=== PATIENT | female | born 1990 | race Caucasian/White ===

== ENCOUNTER 2021-01-09 22:30 | Emergency (ER) | payer SELFPAY ==
[~2021-01-09] VITALS: Ht 167.6 cm; Wt 105.2 kg
[2021-01-09 22:43] VITALS: BP 141/97
== END 2021-01-10 01:54 | disposition home or self-care (01) ==
LOC: ER 22:32
DX: N93.0 Postcoital and contact bleeding (principal); N83.201 Unspecified ovarian cyst, right side; Z97.5 Presence of (intrauterine) contraceptive device; Z60.2 Problems related to living alone; Z88.2 Allergy status to sulfonamides
CPT/HCPCS: 76856; 93976; 99284

== ENCOUNTER 2021-03-02 12:08 | Emergency (ER) | payer OTHER ==
[~2021-03-02] VITALS: Ht 167.6 cm; Wt 90.9 kg
[2021-03-02 12:13] VITALS: BP 155/98
[2021-03-02 13:38] LABS: BASOPHILS # (AUTO) 0.1 X10'3 (0-0.2); BASOPHILS % (AUTO) 0.3 % (0-1); EOSINOPHILS % (AUTO) 0.1 % (0-6); HEMATOCRIT 41.6 % (35.0-45.0); HEMOGLOBIN 13.6 g/dl (12.0-16.0); LYMPHOCYTES # (AUTO) 0.9 X10'3 (1.1-4.8); LYMPHOCYTES % (AUTO) 5.4 % (21-51); MEAN CORPUSCULAR HEMOGLOBIN 27.9 PG (27.0-31.0); MEAN CORPUSCULAR HGB CONC 32.6 g/dL (33.0-36.5); MEAN CORPUSCULAR VOLUME 85.4 FL (78-98); MONOCYTES # (AUTO) 0.4 X10'3 (0-0.9); MONOCYTES % (AUTO) 2.3 % (2-12); NEUTROPHILS # (AUTO) 15.9 X10'3 (1.8-7.7); NEUTROPHILS % (AUTO) 91.9 % (42-75); PLATELET COUNT 449 X10'3 (140-440); RED BLOOD COUNT 4.87 X10'6 (4.20-5.60); RED CELL DISTRIBUTION WIDTH 14.8 % (11.5-14.5); WHITE BLOOD COUNT 17.3 X10'3 (4.5-11.0)
[2021-03-02 13:51] LABS: ALANINE AMINOTRANSFERASE 48 U/L (12-78); ALBUMIN 4.6 G/DL (3.4-5.0); ALKALINE PHOSPHATASE 72 IU/L (46-116); ANION GAP 14 (8-16); ASPARTATE AMINO TRANSFERASE 32 U/L (10-37); BILIRUBIN,TOTAL 0.5 MG/DL (0.1-1.0); BLOOD UREA NITROGEN 13 MG/DL (7-18); BUN/CREATININE RATIO 16.9 (6.6-38.0); CHLORIDE 106 MMOL/L (99-107); CREATININE 0.77 MG/DL (0.40-0.90); GLUCOSE 112 MG/DL (70-104); LIPASE 109 U/L (73-393); MAGNESIUM 2.2 MG/DL (1.5-2.4); POTASSIUM 3.9 MMOL/L (3.5-5.1); SODIUM 143 MMOL/L (135-145); TOTAL CARBON DIOXIDE 23.4 MMOL/L (24-32); eGFR 89 ML/MIN
== END 2021-03-02 19:49 | disposition left against medical advice (07) ==
LOC: ER 12:09
DX: R11.10 Vomiting, unspecified (principal); Z53.21 Procedure and treatment not carried out due to patient leaving prior to being seen by health care provider
CPT/HCPCS: 80053; 83690; 83735; 85025; 94760; 99283

== ENCOUNTER 2023-12-23 00:56 | Emergency (ER) | payer OTHER ==
[~2023-12-23] VITALS: Ht 167.6 cm; Wt 100.0 kg
[2023-12-23] MEDS ORDERED: ketorolac trometh. 30mg/ml inj. IV ONE (02:15)
[2023-12-23] MEDS: ondansetron/PF 4mg/2ml inj IV ONE (02:31)
[2023-12-23] MEDS: ketorolac tromethamine 15mg/ml inj. IV ONE (02:33)
[2023-12-23] MEDS: acetaminophen 1,000mg/100ml IV 100 ML IV ONE (02:34)
[2023-12-23] MEDS: normal saline 1000ml 1,000 ML IV ONE (02:39)
[2023-12-23] MEDS ORDERED: ONDA8TAB13 PO (03:35)
[2023-12-23] MEDS ORDERED: IBUP-1984 PO (03:35)
[2023-12-23 03:56] VITALS: BP 117/70; PULSE 71; RESP 16; TEMP 97.3; O2SAT 100
[2023-12-24] MEDS ORDERED: METO10TA3 PO (18:23)
[2023-12-24] MEDS ORDERED: HYDR-3965 PO (18:23)
== END 2023-12-23 03:59 | disposition home or self-care (01) ==
LOC: ER 00:57
DX: R51.9 Headache, unspecified (principal); R11.2 Nausea with vomiting, unspecified; Z60.2 Problems related to living alone; Z79.1 Long term (current) use of non-steroidal anti-inflammatories (NSAID); Z88.2 Allergy status to sulfonamides; Z79.899 Other long term (current) drug therapy
CPT/HCPCS: 96374; 96375; 99284; J0131; J1885; J2405; J7030; 96361

== ENCOUNTER 2023-12-24 14:20 | Inpatient (IN) | payer OTHER ==
[~2023-12-24] VITALS: Ht 165.1 cm; Wt 83.7 kg
[~2023-12-24 14:20] MED LIST: IBUP-1984 PO; ONDA8TAB13 PO
[2023-12-24 15:13] LABS: URINE HCG NEGATIVE (NEG)
[2023-12-24 15:17] LABS: BASOPHILS # (AUTO) 0.1 X10'3 (0-0.2); BASOPHILS % (AUTO) 0.6 % (0-1); EOSINOPHILS # (AUTO) 0.1 X10'3 (0-0.9); EOSINOPHILS % (AUTO) 0.5 % (0-6); HEMATOCRIT 42.5 % (35.0-45.0); LYMPHOCYTES # (AUTO) 2.1 X10'3 (1.1-4.8); MEAN CORPUSCULAR HEMOGLOBIN 28.2 PG (27.0-31.0); MEAN CORPUSCULAR HGB CONC 32.9 g/dL (33.0-36.5); MEAN CORPUSCULAR VOLUME 85.7 FL (78-98); MEAN PLATELET VOLUME 7.5 FL (7.4-10.4); MONOCYTES # (AUTO) 0.5 X10'3 (0-0.9); MONOCYTES % (AUTO) 4.7 % (2-12); NEUTROPHILS # (AUTO) 8.7 X10'3 (1.8-7.7); NEUTROPHILS % (AUTO) 76.2 % (42-75); PLATELET COUNT 447 X10'3 (140-440); RED BLOOD COUNT 4.97 X10'6 (4.20-5.60); WHITE BLOOD COUNT 11.4 X10'3 (4.5-11.0)
[2023-12-24 15:24] LABS: BILIRUBIN,URINE NEGATIVE (Neg); CLARITY,URINE SLIGHTLY CLOUDY (Clear); COLOR,URINE YELLOW (Yellow); GLUCOSE, URINE NEGATIVE (Neg); KETONES,URINE 40 mg/dl (Neg); LEUKOCYTE ESTERASE ,URINE NEGATIVE (Neg); NITRITES, URINE NEGATIVE (Neg); OCCULT BLOOD,URINE LARGE (Neg); PROTEIN,URINE NEGATIVE (Neg)
[2023-12-24 15:30] LABS: ALANINE AMINOTRANSFERASE 76 U/L (12-78); ALBUMIN 4.2 G/DL (3.4-5.0); ALBUMIN/GLOBULIN RATIO 0.9 (1.1-1.5); ALKALINE PHOSPHATASE 58 IU/L (46-116); ANION GAP 9 (8-16); ASPARTATE AMINO TRANSFERASE 34 U/L (10-37); BILIRUBIN,TOTAL 0.6 MG/DL (0.1-1.0); BLOOD UREA NITROGEN 8 MG/DL (7-18); BUN/CREATININE RATIO 9.4 (10.0-20.0); CALCIUM 9.1 MG/DL (8.5-10.1); CHLORIDE 102 MMOL/L (99-107); CREATININE 0.85 MG/DL (0.40-0.90); GLUCOSE 93 MG/DL (70-104); LIPASE 44 U/L (16-77); POTASSIUM 3.5 MMOL/L (3.5-5.1); SODIUM 137 MMOL/L (135-145); TOTAL CARBON DIOXIDE 25.6 MMOL/L (24-32); TOTAL PROTEIN 8.9 G/DL (6.4-8.2); eCRCL 86 ML/MIN; eGFR 78 ML/MIN
[2023-12-24 15:33] LABS: SQUAMOUS EPITHELIAL CELL,UR MODERATE /LPF (FEW); UA COLLECTION TYPE CLN CATCH MIDSTREAM
[2023-12-24 15:34] LABS: BACTERIA,URINE FEW /HPF (Neg); MUCUS STRANDS FEW /LPF (Neg); RBC,URINE 20-50 /HPF (0-2); WBC,URINE 0-4 /HPF (0-4)
[2023-12-24] MEDS: ketorolac tromethamine 15mg/ml inj. IV ONE (16:19)
[2023-12-24] MEDS: metoclopramide 5 mg/ml inj IV ONE ×2 (16:21→19:46)
[2023-12-24] MEDS: diphenhydrAMINE 50 mg/ml inj IV ONE ×2 (16:23→19:46)
[2023-12-24] MEDS: normal saline 1000ml 1,000 ML IV ONE (16:25)
[2023-12-24] MEDS ORDERED: METO10TA3 PO (18:23)
[2023-12-24] MEDS ORDERED: HYDR-3965 PO (18:23)
[2023-12-24] MEDS ORDERED: ondansetron/PF 4mg/2ml inj IM ONE (19:10)
[2023-12-24] MEDS: ondansetron/PF 4mg/2ml inj IV ONE (19:20)
[2023-12-24] MEDS: LORazepam 2 mg/ml vial IV ONE (19:36)
[2023-12-24] MEDS: morphine 4 MG/ML inj SYRINge IV ONE (19:42)
[2023-12-24] MEDS: normal saline 1000ML IV soln IVB ONE (19:47)
[2023-12-24] MEDS: piperacillin/tazo 3.375gm/50ml 50 ML IV STA (19:55)
[2023-12-24] MEDS ORDERED: potassium Cl 40MEQ/1/2NS 520ml 520 ML IV PRN (20:05)
[2023-12-24] MEDS: CefTRIAXone/D5W-Rocephin 1gm 50 ML IV ONE (20:27)
[2023-12-24] MEDS: normal saline 1000ml 1,000 ML IV SCH (20:27)
[2023-12-24] MEDS: haloperidol lactate 5mg/ml inj IM ONE (21:32)
[2023-12-24] MEDS: ondansetron/PF 4mg/2ml inj IV PRN (23:03)
[2023-12-24] MEDS: morphine 2 MG/ML inj. syringe IV PRN (23:04)
[2023-12-25] VITALS (17 sets, daily range): BP systolic 127–178; BP diastolic 73–99; PULSE 65–106; RESP 15–18; TEMP 97.9–98.4; O2SAT 94–100
[2023-12-25] MEDS: proCHLORperazine 10 MG/2 ml inj IV PRN (00:16)
[2023-12-25 07:55] LABS: BASOPHILS % (AUTO) 0.2 % (0-1); EOSINOPHILS % (AUTO) 0 % (0-6); HEMATOCRIT 39.1 % (35.0-45.0); HEMOGLOBIN 12.9 g/dl (12.0-16.0); LYMPHOCYTES % (AUTO) 6.7 % (21-51); MEAN CORPUSCULAR HEMOGLOBIN 28.1 PG (27.0-31.0); MEAN CORPUSCULAR HGB CONC 32.9 g/dL (33.0-36.5); MEAN CORPUSCULAR VOLUME 85.6 FL (78-98); MEAN PLATELET VOLUME 8.2 FL (7.4-10.4); MONOCYTES # (AUTO) 0.3 X10'3 (0-0.9); MONOCYTES % (AUTO) 1.7 % (2-12); NEUTROPHILS # (AUTO) 13.9 X10'3 (1.8-7.7); NEUTROPHILS % (AUTO) 91.4 % (42-75); PLATELET COUNT 462 X10'3 (140-440); RED BLOOD COUNT 4.57 X10'6 (4.20-5.60); WHITE BLOOD COUNT 15.3 X10'3 (4.5-11.0)
[2023-12-25] MEDS: venlafaxine XR 75mg capsule (Q24H) PO SCH (08:00)
[2023-12-25 08:11] LABS: ALANINE AMINOTRANSFERASE 62 U/L (12-78); ALBUMIN/GLOBULIN RATIO 0.9 (1.1-1.5); ALKALINE PHOSPHATASE 53 IU/L (46-116); ANION GAP 14 (8-16); ASPARTATE AMINO TRANSFERASE 25 U/L (10-37); BILIRUBIN,TOTAL 0.6 MG/DL (0.1-1.0); BLOOD UREA NITROGEN 9 MG/DL (7-18); BUN/CREATININE RATIO 13.8 (10.0-20.0); CALCIUM 8.4 MG/DL (8.5-10.1); CHLORIDE 104 MMOL/L (99-107); CREATININE 0.65 MG/DL (0.40-0.90); GLUCOSE 118 MG/DL (70-104); POTASSIUM 3.5 MMOL/L (3.5-5.1); SODIUM 138 MMOL/L (135-145); TOTAL CARBON DIOXIDE 20.1 MMOL/L (24-32); TOTAL PROTEIN 8.4 G/DL (6.4-8.2); eCRCL 113 ML/MIN; eGFR > 90 ML/MIN
[2023-12-25] MEDS: ondansetron/PF 4mg/2ml inj IM ONE (08:29)
[2023-12-25] MEDS: CefTRIAXone/D5W-Rocephin 1gm 50 ML IV SCH (08:29)
[2023-12-25] MEDS: metoclopramide 5 mg/ml inj IV PRN (09:12)
[2023-12-25] MEDS: BUPIVAcaine 2.5mg/ml inj 50ml vial (contains preservative) ONE (16:51)
[2023-12-25] MEDS ORDERED: sevoflurane 250ml liquid IH ONE (17:33)
[2023-12-25] MEDS ORDERED: proCHLORperazine 10 MG/2 ml inj IV PRN (17:40)
[2023-12-25] MEDS ORDERED: labetalol 20mg/4ml (5mg/ml) syringe IV PRN (17:40)
[2023-12-25] MEDS ORDERED: morphine 2 MG/ML inj. syringe IV PRN (17:40)
[2023-12-25] MEDS: ringers solution, lacted 1,000 ML IV SCH (17:40)
[2023-12-25] MEDS ORDERED: morphine 4 MG/ML inj SYRINge IV PRN (17:40)
[2023-12-25] MEDS ORDERED: ondansetron/PF 4mg/2ml inj IV PRN (17:40)
[2023-12-25] MEDS ORDERED: hydrALAZINE 20mg/ml inj. IV PRN (17:40)
[2023-12-25] MEDS ORDERED: HYDROmorphone/PF 0.2 MG/ML SYRINGE IV PRN (17:40)
[2023-12-25] MEDS: BUPIVAcaine/PF 2.5 mg/ml (0.25%) 30ml vial IJ ONE (17:40)
[2023-12-25] MEDS ORDERED: midazolam 1 mg/ML 2ml injection ONE (17:42)
[2023-12-25] MEDS ORDERED: fentaNYL /PF 50mcg/ml 5ml ampule ONE (17:53)
[2023-12-25] MEDS ORDERED: ondansetron/PF 4mg/2ml inj ONE (17:55)
[2023-12-25] MEDS ORDERED: propofol inj 20 ML IV ONE ×2 (17:55→18:41)
[2023-12-25] MEDS ORDERED: ceFOXitin 1000 MG inj ONE ×2 (17:55)
[2023-12-25] MEDS ORDERED: dexamethasone sod phosphate 4mg/ml inj. ONE (17:55)
[2023-12-25] MEDS ORDERED: rocuronium 10mg/ml inj IV ONE (17:55)
[2023-12-25] MEDS ORDERED: LIDOcaine 2% (20mg/ml) 5ml vial ONE (17:55)
[2023-12-25] MEDS ORDERED: neostigmine methylsulfate 1 MG/ML 10ml vial ONE (18:29)
[2023-12-25] MEDS ORDERED: glycopyrrolate 0.2mg/ml inj ONE (18:29)
[2023-12-25] MEDS ORDERED: morphine 4 MG/ML inj SYRINge ONE (18:37)
[2023-12-25] MEDS ORDERED: sugammadex 200mg/2ml injection IV ONE (18:38)
[2023-12-25] MEDS: acetaminophen 1,000mg/100ml IV 100 ML IV ONE (18:57)
[2023-12-25] MEDS: ketorolac trometh. 30mg/ml inj. IV ONE (18:57)
[2023-12-25] MEDS: meperidine/PF 25mg/ml syringe IV PRN (18:58)
[2023-12-26 02:00] VITALS: BP 126/76; PULSE 85; RESP 16; TEMP 98.6; O2SAT 93
[2023-12-26] MEDS: HYDROmorphone/PF 0.2 MG/ML SYRINGE IV PRN (03:40)
[2023-12-26 05:36] LABS: BASOPHILS % (AUTO) 0.2 % (0-1); EOSINOPHILS % (AUTO) 0 % (0-6); HEMATOCRIT 36.4 % (35.0-45.0); LYMPHOCYTES # (AUTO) 1.4 X10'3 (1.1-4.8); MEAN CORPUSCULAR HGB CONC 32.8 g/dL (33.0-36.5); MEAN CORPUSCULAR VOLUME 85.4 FL (78-98); MEAN PLATELET VOLUME 7.8 FL (7.4-10.4); MONOCYTES # (AUTO) 1.5 X10'3 (0-0.9); MONOCYTES % (AUTO) 7.4 % (2-12); NEUTROPHILS # (AUTO) 17.1 X10'3 (1.8-7.7); NEUTROPHILS % (AUTO) 85.4 % (42-75); PLATELET COUNT 401 X10'3 (140-440); RED BLOOD COUNT 4.26 X10'6 (4.20-5.60); RED CELL DISTRIBUTION WIDTH 13.9 % (11.5-14.5)
[2023-12-26 06:07] LABS: ALANINE AMINOTRANSFERASE 95 U/L (12-78); ALBUMIN 3.2 G/DL (3.4-5.0); ALBUMIN/GLOBULIN RATIO 0.9 (1.1-1.5); ALKALINE PHOSPHATASE 45 IU/L (46-116); ANION GAP 10 (8-16); ASPARTATE AMINO TRANSFERASE 68 U/L (10-37); BILIRUBIN,TOTAL 0.6 MG/DL (0.1-1.0); BLOOD UREA NITROGEN 11 MG/DL (7-18); BUN/CREATININE RATIO 16.7 (10.0-20.0); CALCIUM 8.1 MG/DL (8.5-10.1); CHLORIDE 103 MMOL/L (99-107); CREATININE 0.66 MG/DL (0.40-0.90); GLUCOSE 106 MG/DL (70-104); POTASSIUM 3.3 MMOL/L (3.5-5.1); SODIUM 136 MMOL/L (135-145); TOTAL CARBON DIOXIDE 23.3 MMOL/L (24-32); TOTAL PROTEIN 6.8 G/DL (6.4-8.2); eCRCL 111 ML/MIN; eGFR > 90 ML/MIN
[2023-12-26 08:00] VITALS: RESP 18; O2SAT 96
[2023-12-26] MEDS: acetaminophen 325mg tablet PO PRN (10:12)
[2023-12-26 10:26] VITALS: BP 131/68; PULSE 88; RESP 18; TEMP 99.4; O2SAT 99
[2023-12-26 16:04] VITALS: RESP 16
[2023-12-26] MEDS ORDERED: HYDR-3965 PO (16:46)
[2023-12-26] MEDS ORDERED: LACT1CAP74 PO (16:50)
[2023-12-26] MEDS ORDERED: CEFD300C3 PO (16:50)
[2023-12-26] MEDS ORDERED: METR-159 PO (16:50)
== END 2023-12-26 17:15 | disposition home or self-care (01) | DRG 419 ==
LOC: ER 14:20 → UNDOADMIN 20:01 → ED HOLD 20:01 → ORTHO 4S 12-25 07:20
PROVIDERS: ADMIT Internal Medicine; ATTEND Family Medicine
PROC: 0FT44ZZ Resection of Gallbladder, Percutaneous Endoscopic Approach (ICD-10-PCS; principal; 2023-12-24)
DX: K80.00 Calculus of gallbladder with acute cholecystitis without obstruction (principal); K82.8 Other specified diseases of gallbladder; E66.9 Obesity, unspecified; G43.909 Migraine, unspecified, not intractable, without status migrainosus; Z88.2 Allergy status to sulfonamides; Z68.30 Body mass index [BMI] 30.0-30.9, adult
CPT/HCPCS: 36415; 74176; 74181; 76700; 80053; 81001; 81025; 83690; 85025; 87081; 96365; 96375; 99291; A4215; A4618; A7000; G0378; J0131; J0694; J0696; J0780; J1100; J1170; J1200; J1630; J1885; J2175; J2250; J2270; J2405; J2543; J2704; J2710; J2765; J3010; J3490; J7030; J7040; J7120

== ENCOUNTER 2024-04-03 00:17 | Emergency (ER) | payer SELFPAY ==
[~2024-04-03] VITALS: Ht 165.1 cm; Wt 98.7 kg
[~2024-04-03 00:17] MED LIST changes: -IBUP-1984 PO; +LACT1CAP74 PO; -ONDA8TAB13 PO
[2024-04-03 00:21] VITALS: TEMP 97.2
[2024-04-03] MEDS: normal saline 1000ML IV soln IVB ONE ×2 (00:48→05:40)
[2024-04-03] MEDS ORDERED: proCHLORperazine 10 MG/2 ml inj IM ONE (00:50)
[2024-04-03 00:57] LABS: BASOPHILS # (AUTO) 0.2 X10'3 (0-0.2); BASOPHILS % (AUTO) 1.1 % (0-1); EOSINOPHILS # (AUTO) 0.1 X10'3 (0-0.9); EOSINOPHILS % (AUTO) 0.6 % (0-6); HEMATOCRIT 45.2 % (35.0-45.0); HEMOGLOBIN 15.1 g/dl (12.0-16.0); LYMPHOCYTES # (AUTO) 4.1 X10'3 (1.1-4.8); LYMPHOCYTES % (AUTO) 22.6 % (21-51); MEAN CORPUSCULAR HGB CONC 33.5 g/dL (33.0-36.5); MEAN CORPUSCULAR VOLUME 83.7 FL (78-98); MEAN PLATELET VOLUME 7.8 FL (7.4-10.4); MONOCYTES # (AUTO) 1.4 X10'3 (0-0.9); MONOCYTES % (AUTO) 7.6 % (2-12); NEUTROPHILS # (AUTO) 12.3 X10'3 (1.8-7.7); NEUTROPHILS % (AUTO) 68.1 % (42-75); PLATELET COUNT 557 X10'3 (140-440); RED BLOOD COUNT 5.39 X10'6 (4.20-5.60); RED CELL DISTRIBUTION WIDTH 14.3 % (11.5-14.5); WHITE BLOOD COUNT 18.1 X10'3 (4.5-11.0)
[2024-04-03 01:11] LABS: ALANINE AMINOTRANSFERASE 44 U/L (12-78); ALBUMIN 4.4 G/DL (3.4-5.0); ALKALINE PHOSPHATASE 62 IU/L (46-116); ANION GAP 19 (8-16); ASPARTATE AMINO TRANSFERASE 33 U/L (10-37); BILIRUBIN,TOTAL 1.2 MG/DL (0.1-1.0); BLOOD UREA NITROGEN 14 MG/DL (7-18); BUN/CREATININE RATIO 12.5 (10.0-20.0); CALCIUM 9.8 MG/DL (8.5-10.1); CHLORIDE 98 MMOL/L (99-107); CREATININE 1.12 MG/DL (0.40-0.90); GLUCOSE 151 MG/DL (70-104); LIPASE 39 U/L (16-77); SODIUM 139 MMOL/L (135-145); TOTAL CARBON DIOXIDE 21.8 MMOL/L (24-32); TOTAL PROTEIN 8.8 G/DL (6.4-8.2); eCRCL 65 ML/MIN; eGFR 57 ML/MIN
[2024-04-03 01:14] LABS: POTASSIUM 2.8 MMOL/L (3.5-5.1)
[2024-04-03] MEDS: proCHLORperazine 10 MG/2 ml inj IV STA (01:16)
[2024-04-03] MEDS: potassium Cl 40MEQ/1/2NS 520ml 520 ML IV ONE (01:40)
[2024-04-03] MEDS: normal saline 1000ml 1,000 ML IV STA (01:40)
[2024-04-03] MEDS: potassium CL 10mEq/100ml bag 100 ML IV ONE (02:42)
[2024-04-03 03:01] LABS: ETHANOL < 10 MG/DL (<10); MAGNESIUM 1.9 MG/DL (1.5-2.4)
[2024-04-03] MEDS: magnesium sulf-water 2g/50mL 50 ML IV ONE (04:00)
[2024-04-03] MEDS ORDERED: ONDA-243 PO (05:29)
[2024-04-03 06:18] LABS: BILIRUBIN,URINE NEGATIVE (Neg); CLARITY,URINE TURBID (Clear); COLOR,URINE YELLOW (Yellow); GLUCOSE, URINE NEGATIVE (Neg); KETONES,URINE 40 mg/dl (Neg); LEUKOCYTE ESTERASE ,URINE NEGATIVE (Neg); NITRITES, URINE NEGATIVE (Neg); OCCULT BLOOD,URINE TRACE-INTACT (Neg); PH,URINE 8.5 (4.8-8.0); PROTEIN,URINE NEGATIVE (Neg)
[2024-04-03 06:24] LABS: URINE HCG NEGATIVE (NEG)
[2024-04-03 06:31] LABS: URINE AMPHETAMINE SCREEN NEGATIVE (Neg); URINE BARBITUATE SCREEN NEGATIVE (Neg); URINE BENZODIAZEPINES SCREEN NEGATIVE (Neg); URINE CANNABINOID SCREEN POSITIVE (Neg); URINE COCAINE SCREEN NEGATIVE (Neg); URINE METHADONE SCREEN NEGATIVE (Neg); URINE OPIATE SCREEN NEGATIVE (Neg); URINE PHENCYCLIDINE SCREEN NEGATIVE (Neg)
[2024-04-03 06:32] LABS: UA COLLECTION TYPE CLN CATCH MIDSTREAM
[2024-04-03 06:34] LABS: AMORPHOUS PHOSPHATES 4+; BACTERIA,URINE FEW /HPF (Neg); MUCUS STRANDS NONE SEEN /LPF (Neg); RBC,URINE 0-2 /HPF (0-2); SQUAMOUS EPITHELIAL CELL,UR FEW /LPF (FEW); WBC,URINE 0-4 /HPF (0-4)
[2024-04-03 07:23] LABS: BASOPHILS # (AUTO) 0.1 X10'3 (0-0.2); BASOPHILS % (AUTO) 0.6 % (0-1); EOSINOPHILS % (AUTO) 0 % (0-6); HEMATOCRIT 43.8 % (35.0-45.0); HEMOGLOBIN 14.3 g/dl (12.0-16.0); LYMPHOCYTES # (AUTO) 1.1 X10'3 (1.1-4.8); LYMPHOCYTES % (AUTO) 7.6 % (21-51); MEAN CORPUSCULAR HGB CONC 32.7 g/dL (33.0-36.5); MEAN CORPUSCULAR VOLUME 85.7 FL (78-98); MEAN PLATELET VOLUME 7.8 FL (7.4-10.4); MONOCYTES # (AUTO) 0.4 X10'3 (0-0.9); MONOCYTES % (AUTO) 2.9 % (2-12); NEUTROPHILS # (AUTO) 13.2 X10'3 (1.8-7.7); NEUTROPHILS % (AUTO) 88.9 % (42-75); PLATELET COUNT 441 X10'3 (140-440); RED BLOOD COUNT 5.12 X10'6 (4.20-5.60); RED CELL DISTRIBUTION WIDTH 14.4 % (11.5-14.5); WHITE BLOOD COUNT 14.9 X10'3 (4.5-11.0)
[2024-04-03 07:37] LABS: ALANINE AMINOTRANSFERASE 40 U/L (12-78); ALBUMIN 3.7 G/DL (3.4-5.0); ALKALINE PHOSPHATASE 50 IU/L (46-116); ANION GAP 12 (8-16); ASPARTATE AMINO TRANSFERASE 28 U/L (10-37); BILIRUBIN,TOTAL 0.7 MG/DL (0.1-1.0); BLOOD UREA NITROGEN 10 MG/DL (7-18); BUN/CREATININE RATIO 14.7 (10.0-20.0); CALCIUM 7.8 MG/DL (8.5-10.1); CHLORIDE 103 MMOL/L (99-107); CREATININE 0.68 MG/DL (0.40-0.90); GLUCOSE 120 MG/DL (70-104); POTASSIUM 3.4 MMOL/L (3.5-5.1); SODIUM 140 MMOL/L (135-145); TOTAL CARBON DIOXIDE 24.8 MMOL/L (24-32); TOTAL PROTEIN 7.5 G/DL (6.4-8.2); eCRCL 108 ML/MIN; eGFR > 90 ML/MIN
[2024-04-03] MEDS: ondansetron/PF 4mg/2ml inj IV ONE (09:20)
[2024-04-03] MEDS: metoclopramide 5 mg/ml inj IV ONE (10:34)
[2024-04-03] MEDS: diphenhydrAMINE 50 mg/ml inj IV ONE (11:57)
[2024-04-03 11:58] VITALS: BP 140/89; PULSE 85; RESP 16; O2SAT 97
[2024-04-03] MEDS ORDERED: METO10TA3 PO (12:43)
== END 2024-04-03 13:28 | disposition home or self-care (01) ==
LOC: ER 00:17
DX: K52.9 Noninfective gastroenteritis and colitis, unspecified (principal); E87.6 Hypokalemia; Z88.2 Allergy status to sulfonamides; Z79.899 Other long term (current) drug therapy; Z90.49 Acquired absence of other specified parts of digestive tract
CPT/HCPCS: 36415; 74176; 80053; 80305; 80320; 81001; 81025; 83690; 83735; 85025; 96361; 96365; 96366; 96368; 96375; 99285; J0780; J1200; J2405; J2765; J3480; J7030

== ENCOUNTER 2024-04-04 10:57 | Emergency (ER) | payer OTHER ==
[~2024-04-04 10:57] MED LIST changes: +METO10TA3 PO; +ONDA-243 PO
== END 2024-04-04 11:44 | disposition left against medical advice (07) ==
LOC: ER 10:57
DX: R10.9 Unspecified abdominal pain (principal); R11.10 Vomiting, unspecified; Z53.21 Procedure and treatment not carried out due to patient leaving prior to being seen by health care provider

== ENCOUNTER 2024-04-04 18:02 | Emergency (ER) | payer OTHER ==
[~2024-04-04] VITALS: Ht 165.1 cm; Wt 100.7 kg
[2024-04-04 18:59] LABS: BASOPHILS # (AUTO) 0.1 X10'3 (0-0.2); BASOPHILS % (AUTO) 0.6 % (0-1); EOSINOPHILS % (AUTO) 0.3 % (0-6); HEMATOCRIT 43.9 % (35.0-45.0); HEMOGLOBIN 14.5 g/dl (12.0-16.0); LYMPHOCYTES # (AUTO) 2.8 X10'3 (1.1-4.8); LYMPHOCYTES % (AUTO) 19.4 % (21-51); MEAN CORPUSCULAR HEMOGLOBIN 28.1 PG (27.0-31.0); MEAN CORPUSCULAR VOLUME 85.1 FL (78-98); MEAN PLATELET VOLUME 7.9 FL (7.4-10.4); MONOCYTES # (AUTO) 1.3 X10'3 (0-0.9); MONOCYTES % (AUTO) 8.8 % (2-12); NEUTROPHILS # (AUTO) 10.3 X10'3 (1.8-7.7); NEUTROPHILS % (AUTO) 70.9 % (42-75); PLATELET COUNT 464 X10'3 (140-440); RED BLOOD COUNT 5.16 X10'6 (4.20-5.60); RED CELL DISTRIBUTION WIDTH 14.2 % (11.5-14.5); WHITE BLOOD COUNT 14.6 X10'3 (4.5-11.0)
[2024-04-04 19:09] LABS: ALANINE AMINOTRANSFERASE 92 U/L (12-78); ALBUMIN 4.1 G/DL (3.4-5.0); ALKALINE PHOSPHATASE 59 IU/L (46-116); ANION GAP 13 (8-16); ASPARTATE AMINO TRANSFERASE 57 U/L (10-37); BILIRUBIN,TOTAL 1.5 MG/DL (0.1-1.0); BLOOD UREA NITROGEN 8 MG/DL (7-18); BUN/CREATININE RATIO 11.9 (10.0-20.0); CALCIUM 9.1 MG/DL (8.5-10.1); CHLORIDE 101 MMOL/L (99-107); CREATININE 0.67 MG/DL (0.40-0.90); GLUCOSE 101 MG/DL (70-104); LIPASE 31 U/L (16-77); SODIUM 138 MMOL/L (135-145); TOTAL CARBON DIOXIDE 24.5 MMOL/L (24-32); TOTAL PROTEIN 8.1 G/DL (6.4-8.2); eCRCL 109 ML/MIN; eGFR > 90 ML/MIN
[2024-04-04 19:14] VITALS: TEMP 92.8
[2024-04-04] MEDS ORDERED: potassium Cl 20mEq/100mL bag 100 ML IV SCH (19:45)
[2024-04-04] MEDS: potassium Cl 20mEq/100mL bag 100 ML IV ONE (19:50)
[2024-04-04] MEDS: normal saline 1000ml 1,000 ML IV ONE (20:29)
[2024-04-04] MEDS: ondansetron/PF 4mg/2ml inj IV ONE (20:38)
[2024-04-04] MEDS: HYDROmorphone 1 mg/ml syringe IV ONE (20:38)
[2024-04-04] MEDS ORDERED: POTASSIUM BICARB 20meq eff tab 20 MEQ TABLET.EFF PO SCH (20:50)
[2024-04-04] MEDS: haloperidol lactate 5mg/ml inj IM ONE (21:22)
[2024-04-04] MEDS: POTASSIUM BICARB 20meq eff tab 20 MEQ TABLET.EFF PO ONE (21:22)
[2024-04-04 22:12] VITALS: BP 179/115; PULSE 86; RESP 16; O2SAT 98
== END 2024-04-04 22:16 | disposition home or self-care (01) ==
LOC: ER 18:02
DX: R11.2 Nausea with vomiting, unspecified (principal); R10.13 Epigastric pain; Z88.2 Allergy status to sulfonamides; Z79.899 Other long term (current) drug therapy; Z90.49 Acquired absence of other specified parts of digestive tract
CPT/HCPCS: 36415; 74176; 80053; 83690; 85025; 96361; 96372; 96374; 96375; 99285; J1170; J1630; J2405; J7030